=== PATIENT | male | born 1980 | race Caucasian/White ===

== ENCOUNTER 2020-01-03 13:38 | Emergency (ER) | payer BC, SELFPAY ==
[2020-01-03 14:00] VITALS: BP 91/54; PULSE 61; RESP 14; TEMP 36.3; O2SAT 98
--- NOTE | 2020-01-03 14:31 | ED.WOUNDLAC ---
HPI - Wound/Laceration General Chief Complaint: Extremity Injury, Lower Stated Complaint: stepped on a rake went through shoe and foot Source: patient Mode of arrival: ambulatory Limitations: no limitations History of Present Illness HPI narrative: patient is a 39-year-old male who was raking today and ended up stepping on the rake. he was wearing boots has, however, 1 of the prongs of the rake went through his shoe. He has not had fevers chills nausea vomiting he has no other symptoms. Onset (ago): minute(s) Body four view annotation: 1. 2 small puncture wounds to bottom of foot Place: home Patient tetanus UTD: No Context: accidental Related Data Allergies Allergy/AdvReac Type Severity Reaction Status Date / Time dimenhydrinate Allergy Nausea Verified 01/03/20 14:16 [From Dramamine] Sulfa (Sulfonamide Allergy Unknown Verified 01/03/20 14:16 Antibiotics) Review of Systems Review of Systems: All systems reviewed & are unremarkable except as noted in HPI and below PMFSH Past Medical History Medical History Low blood pressure Exam Const: General: no acute distress and alert Nutritional Appearance: well nourished Orientation/consciousness: patient oriented x3 Back/Spine/Pelvis: Back: no CVA tenderness Skin: General skin exam: normal color Rashes: no rashes Neuro: General: patient oriented x3 Speech: normal speech Extrem: Other: Two small puncture wounds to the bottom of left foot. Psych: Appearance: grossly normal Mental Status: mental status grossly normal Thought content: Yes Normal thought content present Course Vital Signs Vital signs: Vital Signs Temperature 36.3 C L 01/03/20 14:00 Pulse Rate 61 01/03/20 14:00 Respiratory Rate 14 01/03/20 14:00 Blood Pressure 91/54 L 01/03/20 14:00 Pulse Oximetry 98 01/03/20 14:00 Temperature 36.3 C L 01/03/20 14:00 Pulse Rate 61 01/03/20 14:00 Respiratory Rate 14 01/03/20 14:00 Blood Pressure 91/54 L 01/03/20 14:00 Pulse Oximetry 98 01/03/20 14:00 Discharge Plan Discharge Clinical Impression: Puncture wound Patient Disposition: Home, Self-Care Condition: Stable Instructions: Antibiotic Form, Puncture Wound (ED) Prescriptions: New amoxicillin-pot clavulanate [Augmentin] 500-125 mg tablet 1 tablet PO Q12H Qty: 14 RF: 0 Follow-up/Referrals: UNKNOWN,DOCTOR [Primary Care Provider] - Time of Disposition: 14:35
[2020-01-03] MEDS: TETANUS,DIPHTHERIA,AC PERTUSSIS ADULT 0.5 ML (ADACEL) IM (14:40)
[2020-01-03 14:56] VITALS: PULSE 59; RESP 14; O2SAT 98
== END 2020-01-03 14:45 | disposition home or self-care (01) ==
PROVIDERS: Emergency Provider Emergency Medicine
DX: S91.332A Puncture wound without foreign body, left foot, initial encounter (principal); W45.8XXA Other foreign body or object entering through skin, initial encounter
CPT/HCPCS: 90471; 90715; 99283